=== PATIENT | female | born 1990 | race African-American/Black ===

== ENCOUNTER 2016-09-07 19:33 | Emergency (ER) | payer MEDICAID ==
[~2016-09-07] VITALS: Ht 165.1 cm; Wt 58.0 kg
[2016-09-08 01:53] VITALS: BP 114/74
== END 2016-09-08 01:53 | disposition home or self-care (01) ==
LOC: ER 19:33
DX: K08.89 Other specified disorders of teeth and supporting structures (principal); F17.200 Nicotine dependence, unspecified, uncomplicated
CPT/HCPCS: 81025; 99282

== ENCOUNTER 2019-04-13 11:19 | Emergency (ER) | payer OTHER, MEDICAID ==
[~2019-04-13] VITALS: Ht 162.6 cm; Wt 60.0 kg
[2019-04-13 12:28] VITALS: BP 135/80
[2019-04-13 16:22] LABS: CLARITY URINE CLOUDY (CLEAR); COLOR URINE YELLOW (YELLOW); KETONES URINE 2+ (NEGATIVE); LEUKOCYTE ESTERASE URINE 2+ (NEGATIVE); NITRITE URINE NEGATIVE (NEGATIVE); OCCULT BLOOD URINE NEGATIVE (NEGATIVE); PROTEIN URINE NEGATIVE (NEGATIVE); SPECIFIC GRAVITY URINE 1.022 (1.005-1.030)
== END 2019-04-13 17:07 | disposition home or self-care (01) ==
LOC: ER 11:19
DX: J06.9 Acute upper respiratory infection, unspecified (principal); N39.0 Urinary tract infection, site not specified; M79.10 Myalgia, unspecified site
CPT/HCPCS: 81003; 81025; 87804; 99283

== ENCOUNTER 2022-07-15 01:37 | Emergency (ER) | payer BC, MEDICAID ==
[~2022-07-15] VITALS: Ht 165.1 cm; Wt 67.0 kg
[2022-07-15] MEDS ORDERED: IBUPROFEN 600MG TABLET PO ONE (02:00)
[2022-07-15] MEDS ORDERED: IBUP-2028 MT (03:25)
[2022-07-15 03:46] VITALS: BP 118/89
== END 2022-07-15 03:47 | disposition home or self-care (01) ==
LOC: ER 01:37
DX: S60.222A Contusion of left hand, initial encounter (principal); S13.9XXA Sprain of joints and ligaments of unspecified parts of neck, initial encounter; V49.9XXA Car occupant (driver) (passenger) injured in unspecified traffic accident, initial encounter; Y93.9 Activity, unspecified; Y92.89 Other specified places as the place of occurrence of the external cause; Y99.8 Other external cause status
CPT/HCPCS: 72040; 73130; 99284

== ENCOUNTER 2023-03-23 16:05 | Emergency (ER) | payer BC, MEDICAID ==
[~2023-03-23] VITALS: Ht 167.6 cm; Wt 68.0 kg
[~2023-03-23 16:05] MED LIST: IBUP-2028 MT
[2023-03-23 16:14] VITALS: BP 131/89; PULSE 89; RESP 20; TEMP 98.5; O2SAT 100
[2023-03-23 17:49] LABS: BASOPHILS % 0.6 % (0.0-2.0); EOSINOPHILS % 0.8 % (0.0-5.0); HEMATOCRIT. 40.5 % (36.0-48.0); HEMOGLOBIN. 13.4 g/dL (12.0-16.0); LYMPHOCYTES % 34.1 % (20.0-50.0); MEAN CORPUSCULAR HEMOGLOBIN 30.5 pg (28.0-32.0); MEAN CORPUSCULAR VOLUME 92.4 fL (81.0-99.0); MEAN PLATELET VOLUME 7.5 fl (7.4-10.4); NEUTROPHILS % 56.5 % (40.0-76.0); PLATELET 310 x1000/uL (130-400); RED BLOOD CELL COUNT 4.39 mill/uL (4.2-5.4); RED CELL DISTRIBUTION WIDTH 13.5 % (11.6-14.6)
[2023-03-23 17:59] LABS: HCG SCREEN NEGATIVE
[2023-03-23 18:05] LABS: ACETAMINOPHEN < 2 ug/mL (10-30); ALANINE AMINOTRANSFERASE 10 IU/L (10-49); ALBUMIN 4.6 g/dL (3.2-4.8); ASPARTATE AMINOTRANSFERASE 18 IU/L (<34); BILIRUBIN TOTAL 0.4 mg/dL (0.1-1.0); CALCIUM 9.6 mg/dL (8.7-10.4); CARBON DIOXIDE 26 mEq/L (21-32); CHLORIDE 104 mEq/L (98-107); CREATININE 0.8 mg/dL (0.6-1.0); GLUCOSE 100 mg/dL (70-105); POTASSIUM 3.7 mEq/L (3.5-5.1); PROTEIN TOTAL 7.7 g/dL (6.0-8.3); SODIUM 138 mEq/L (136-145); UREA NITROGEN BLOOD 11 mg/dL (9-23)
[2023-03-23 18:08] LABS: ETHANOL BLOOD < 10 mg/dL (<10)
== END 2023-03-23 18:49 | disposition home or self-care (01) ==
LOC: ER 16:16
DX: R44.0 Auditory hallucinations (principal)
CPT/HCPCS: 36415; 80053; 80307; 80320; 80329; 84703; 85025; 99283; G0480

== ENCOUNTER 2024-03-12 21:24 | Emergency (ER) | payer BC, MEDICAID ==
[~2024-03-12] VITALS: Ht 165.1 cm; Wt 82.0 kg
[2024-03-12 21:33] VITALS: O2SAT 100
[2024-03-12] MEDS ORDERED: ACETAMINOPHEN 325MG TABLET PO PRN (22:00)
[2024-03-12] MEDS: SODIUM CHLORIDE 0.9% 1,000 ML IV ONE (22:04)
[2024-03-12 22:31] LABS: DIFFERENTIAL COMMENT 1; HEMATOCRIT. 40.6 % (36.0-48.0); HEMOGLOBIN. 13.6 g/dL (12.0-16.0); MEAN CORPUSCULAR HEMOGLOBIN 29.9 pg (28.0-32.0); MEAN CORPUSCULAR HGB CONC 33.5 g/dL (31.0-37.0); MEAN CORPUSCULAR VOLUME 89.4 fL (81.0-99.0); MEAN PLATELET VOLUME 8.6 fl (7.4-10.4); PLATELET 225 x1000/uL (130-400); RED BLOOD CELL COUNT 4.54 mill/uL (4.2-5.4); RED CELL DISTRIBUTION WIDTH 13.8 % (11.6-14.6); WHITE BLOOD COUNT 22.1 x1000/uL (4.5-11.0)
[2024-03-12 22:39] LABS: CHLORIDE 105 mEq/L (98-107); POTASSIUM 3.5 mEq/L (3.5-5.1); SODIUM 135 mEq/L (136-145)
[2024-03-12 22:40] LABS: CALCIUM 9.7 mg/dL (8.7-10.4); CARBON DIOXIDE 18 mEq/L (21-32)
[2024-03-12 22:45] LABS: CREATININE 0.7 mg/dL (0.6-1.0); GLUCOSE 150 mg/dL (70-105); UREA NITROGEN BLOOD 8 mg/dL (9-23)
[2024-03-12 22:47] LABS: ALANINE AMINOTRANSFERASE 13 IU/L (10-49); ALBUMIN 4.3 g/dL (3.2-4.8); ASPARTATE AMINOTRANSFERASE 22 IU/L (<34); BILIRUBIN DIRECT 0.2 mg/dL (<=3.0); BILIRUBIN TOTAL 0.6 mg/dL (0.1-1.0); PROTEIN TOTAL 7.1 g/dL (6.0-8.3)
[2024-03-12 22:49] VITALS: BP 137/81; PULSE 119; RESP 30; TEMP 36.55848; O2SAT 95
[2024-03-12 22:49] LABS: CLARITY URINE TURBID (CLEAR); COLOR URINE ORANGE (YELLOW); GLUCOSE URINE TRACE (NEGATIVE); KETONES URINE 4+ (NEGATIVE); LEUKOCYTE ESTERASE URINE 2+ (NEGATIVE); NITRITE URINE NEGATIVE (NEGATIVE); OCCULT BLOOD URINE 3+ (NEGATIVE); PH URINE 5.5 (4.5-8.0); PROTEIN URINE 3+ (NEGATIVE); SPECIFIC GRAVITY URINE 1.032 (1.005-1.030)
[2024-03-12 22:58] LABS: PLATELET ESTIMATE NORMAL
[2024-03-12 22:59] LABS: B-HCG QUANTITATIVE 138120 mIU/mL (<3)
[2024-03-12 23:04] LABS: BACTERIA URINE 2+; RBC URINE 15-25 /hpf (0-2); SQUAMOUS EPITHELIAL CELL URINE FEW /lpf (RARE/1+)
== END 2024-03-12 23:11 | disposition short-term general hospital (02) ==
LOC: ER 21:24
DX: O46.93 Antepartum hemorrhage, unspecified, third trimester (principal); D72.829 Elevated white blood cell count, unspecified; R10.2 Pelvic and perineal pain; Z3A.33 33 weeks gestation of pregnancy
CPT/HCPCS: 80076; 80048; 81003; 84702; 83690; 85025; 86850; 86900; 86901; 36415; 76805; 76817; 96360; 99285; J7030; Z7610 ×2